=== PATIENT | female | born 1935 | race Caucasian/White ===

== ENCOUNTER 2016-07-22 14:28 | Emergency (ER) | payer MEDICARE ==
[~2016-07-22 14:28] MED LIST: ALDACTONE 25MG25 MG PO; COUMADIN 5MG TAB5 MG PO; LOPRESSOR 25 MG25 MG PO; MAG-OX 400 TAB400 MG PO; TIKOSYN500 MCG PO; VALIUM 2 MG TAB2 MG PO; VITAMIN B COMP1 EAC2 PO
[2016-07-22 16:25] LABS: HEMOGLOBIN 13.3 gm/dl (12.3-15.3); RED BLOOD COUNT 4.47 M/UL (4.00-5.10); WHITE BLOOD COUNT 7.1 K/UL (4.5-11.0)
[2016-07-22 16:48] LABS: BUN/CREATININE RATIO 20 (0-10)
== END 2016-07-22 19:04 | disposition home or self-care (01) ==
LOC: ER1 14:28
PROVIDERS: Specialist/Technologist Athletic Trainer
DX: K59.00 Constipation, unspecified (principal); I48.91 Unspecified atrial fibrillation; I10 Essential (primary) hypertension; Z79.899 Other long term (current) drug therapy; Z90.710 Acquired absence of both cervix and uterus; Z79.02 Long term (current) use of antithrombotics/antiplatelets
CPT/HCPCS: 36415; 80053; 82550; 82553; 83874; 84484; 85025; 85610; 85730; 93005; 99284

== ENCOUNTER 2016-07-27 00:47 | Emergency (ER) | payer BC, MEDICARE ==
[2016-07-27 01:26] LABS: RED BLOOD COUNT 4.72 M/UL (4.00-5.10); WHITE BLOOD COUNT 7.9 K/UL (4.5-11.0)
[2016-07-27 01:38] LABS: BUN/CREATININE RATIO 19 (0-10)
== END 2016-07-27 04:39 | disposition home or self-care (01) ==
LOC: ER1 00:47
PROVIDERS: Family Medicine
DX: I48.91 Unspecified atrial fibrillation (principal); M81.0 Age-related osteoporosis without current pathological fracture
CPT/HCPCS: 36415; 72100; 80053; 82550; 82553; 83874; 84484; 85025; 85610; 85730; 93005; 99285